=== PATIENT | male | born 1955 | race African-American/Black ===

== ENCOUNTER 2019-01-24 14:43 | Inpatient (IN) | payer MEDICARE, OTHER ==
[2019-01-24] MEDS: SOD CHLORIDE 0.9% 1,000 ML IV (15:16)
[2019-01-24 15:25] LABS: ADD MAN DIFF? NO
[2019-01-24 15:30] LABS: BASOPHILS % 0.1 % (0.0-2.0); EOSINOPHILS % 0.2 % (0.0-7.0); HEMATOCRIT 36.6 % (42.0-52.0); HEMOGLOBIN 12.7 g/dl (14.0-18.0); LYMPHOCYTES # 1.4 10^3/ul (0.8-2.9); LYMPHOCYTES % 9.9 % (15.0-51.0); MEAN CORPUSCULAR HEMOGLOBIN 29.5 pg (29.0-33.0); MEAN CORPUSCULAR HGB CONC 34.7 g/dl (32.0-37.0); MEAN CORPUSCULAR VOLUME 84.9 fl (82.0-101.0); MEAN PLATELET VOLUME 11.5 fl (7.4-10.4); MONOCYTE # 0.7 10^3/ul (0.3-0.9); MONOCYTES % 4.8 % (0.0-11.0); NEUTROPHIL # 12.1 10^3/ul (1.6-7.5); NEUTROPHILS % 84.5 % (39.0-77.0); PLATELET COUNT 225 10^3/UL (140-415); RED BLOOD COUNT 4.31 10^6/ul (4.70-6.10); RED CELL DISTRIBUTION WIDTH 11.3 % (11.5-14.5)
[2019-01-24 15:30] LABS: WHITE BLOOD COUNT 14.3 10^3/ul (4.8-10.8)
[2019-01-24 15:49] LABS: ALANINE AMINOTRANSFERASE 21 IU/L (13-69); ALBUMIN 3.4 g/dl (3.3-4.9); ALBUMIN/GLOBULIN RATIO 0.87; ALKALINE PHOSPHATASE 109 IU/L (42-121); ANION GAP 7 (5-13); ASPARTATE AMINO TRANSFERASE 24 IU/L (15-46); BILIRUBIN,INDIRECT 0.5 mg/dl (0-1.1); BILIRUBIN,TOTAL 0.5 mg/dl (0.2-1.3); BLOOD UREA NITROGEN 30 mg/dl (7-20); CALCIUM 8.8 mg/dl (8.4-10.2); CARBON DIOXIDE 30 mmol/L (21-31); CHLORIDE 102 mmol/L (97-110); CREATININE 1.69 mg/dl (0.61-1.24); Estimated GFR 50 mL/min (>60); GLUCOSE 266 mg/dl (70-220); POTASSIUM 4.4 mmol/L (3.5-5.1); SODIUM 139 mmol/L (135-144); TOTAL PROTEIN 7.3 g/dl (6.1-8.1)
[2019-01-24 16:08] LABS: TROPONIN-I 0.144 ng/ml (0.000-0.120)
[2019-01-24 16:22] LABS: ADD UMIC YES; UR ASCORBIC ACID 40 mg/dL (NEGATIVE); UR BACTERIA FEW /HPF (NONE SEEN); UR BILIRUBIN (Dip) NEGATIVE (NEGATIVE); UR BLOOD (Dip) NEGATIVE (NEGATIVE); UR CLARITY CLEAR (CLEAR); UR COLOR YELLOW (YELLOW); UR GLUCOSE (Dip) 3+ mg/dL (NEGATIVE); UR KETONES (Dip) NEGATIVE (NEGATIVE); UR LEUKOCYTE ESTERASE (Dip) NEGATIVE Leu/ul (NEGATIVE); UR NITRITE (Dip) NEGATIVE (NEGATIVE); UR RBC 9 /HPF (0-5); UR SPECIFIC GRAVITY (Dip) 1.014 (1.003-1.030); UR TOTAL PROTEIN (Dip) 3+ mg/dl (NEGATIVE); UR UROBILINOGEN (Dip) NEGATIVE (NEGATIVE); UR WBC 1 /HPF (0-5)
[2019-01-24] MEDS ORDERED: ACETAMINOPHEN 325 MG TAB PO (17:30)
[2019-01-24] MEDS ORDERED: ONDANSETRON 4 MG INJ IV (17:30)
[2019-01-25 07:17] LABS: HIV 1&2 ANTIBODY NEGATIVE (NEGATIVE)
[2019-01-25 08:29] LABS: TROPONIN-I 0.089 ng/ml (0.000-0.120)
[2019-01-25] MEDS: ASPIRIN 81 MG TAB PO (08:52)
[2019-01-25] MEDS: LEVETIRACETAM 500 MG (PMX) 100 ML IVPB ×2 (08:53→22:25)
[2019-01-25] MEDS: METOPROLOL 50 MG TAB PO (08:53)
[2019-01-26] MEDS: hydrALAzine 20 MG INJ IV (05:41)
[2019-01-26 08:16] LABS: ADD MAN DIFF? NO
[2019-01-26 08:29] LABS: BASOPHIL # 0.1 10^3/ul (0.0-0.1); BASOPHILS % 0.5 % (0.0-2.0); EOSINOPHILS # 0.4 10^3/ul (0.0-0.5); EOSINOPHILS % 3.1 % (0.0-7.0); HEMATOCRIT 34.3 % (42.0-52.0); HEMOGLOBIN 11.6 g/dl (14.0-18.0); LYMPHOCYTES # 2.4 10^3/ul (0.8-2.9); LYMPHOCYTES % 18.2 % (15.0-51.0); MEAN CORPUSCULAR HEMOGLOBIN 29.7 pg (29.0-33.0); MEAN CORPUSCULAR HGB CONC 33.8 g/dl (32.0-37.0); MEAN CORPUSCULAR VOLUME 87.9 fl (82.0-101.0); MONOCYTE # 1.1 10^3/ul (0.3-0.9); MONOCYTES % 8.5 % (0.0-11.0); NEUTROPHIL # 9.2 10^3/ul (1.6-7.5); NEUTROPHILS % 69.3 % (39.0-77.0); PLATELET COUNT 227 10^3/UL (140-415); RED CELL DISTRIBUTION WIDTH 11.6 % (11.5-14.5)
[2019-01-26 08:29] LABS: WHITE BLOOD COUNT 13.4 10^3/ul (4.8-10.8)
[2019-01-26 08:50] LABS: ANION GAP 5 (5-13); BLOOD UREA NITROGEN 32 mg/dl (7-20); CALCIUM 9.1 mg/dl (8.4-10.2); CARBON DIOXIDE 30 mmol/L (21-31); CHLORIDE 109 mmol/L (97-110); CREATININE 1.81 mg/dl (0.61-1.24); Estimated GFR 46 mL/min (>60); GLUCOSE 214 mg/dl (70-220); POTASSIUM 4.4 mmol/L (3.5-5.1); SODIUM 144 mmol/L (135-144)
[2019-01-26] MEDS: OXCARBAZEPINE 300 MG TAB PO ×2 (09:17→20:50)
[2019-01-26] MEDS: LEVETIRACETAM 500 MG (PMX) 100 ML IVPB ×2 (09:17→20:50)
[2019-01-26 09:42] LABS: CHOL/HDL RATIO 6.9 RATIO; HDL CHOLESTEROL 33 mg/dl (30-78); LDL CHOLESTEROL,CALCULATED 179 mg/dl; MAGNESIUM 2.1 mg/dl (1.7-2.5); TRIGLYCERIDES 84 mg/dl (0-149)
[2019-01-26 09:42] LABS: CHOLESTEROL 229 mg/dl (100-200); PHOSPHORUS 3.4 mg/dl (2.5-4.9)
[2019-01-26] MEDS: ASPIRIN (EC) 81 MG TAB PO (14:31)
[2019-01-26] MEDS: NIFEdipine (XL) 30 MG TAB PO (14:31)
[2019-01-26] MEDS: SOD CHLORIDE 0.9% 1,000 ML IV (22:59)
[2019-01-27] MEDS: OXCARBAZEPINE 300 MG TAB PO ×2 (09:46→21:55)
[2019-01-27] MEDS: LEVETIRACETAM 500 MG (PMX) 100 ML IVPB ×2 (09:46→21:55)
[2019-01-27] MEDS: ASPIRIN (EC) 81 MG TAB PO (09:46)
[2019-01-27] MEDS: NIFEdipine (XL) 30 MG TAB PO (09:47)
[2019-01-27] MEDS: SOD CHLORIDE 0.9% 1,000 ML IV ×2 (12:48→17:04)
[2019-01-27] MEDS: ATORVASTATIN 40 MG TAB PO (21:55)
[2019-01-27] MEDS: TIMOLOL 0.25% 5 ML OPH BOTH EYES (21:57)
[2019-01-28] MEDS: hydrALAzine 20 MG INJ IV (04:39)
[2019-01-28 06:44] LABS: ADD MAN DIFF? NO
[2019-01-28 06:46] LABS: BASOPHIL # 0.1 10^3/ul (0.0-0.1); BASOPHILS % 0.5 % (0.0-2.0); EOSINOPHILS # 0.3 10^3/ul (0.0-0.5); EOSINOPHILS % 2.4 % (0.0-7.0); HEMATOCRIT 31.8 % (42.0-52.0); HEMOGLOBIN 10.4 g/dl (14.0-18.0); LYMPHOCYTES # 1.9 10^3/ul (0.8-2.9); LYMPHOCYTES % 14.3 % (15.0-51.0); MEAN CORPUSCULAR HGB CONC 32.7 g/dl (32.0-37.0); MEAN CORPUSCULAR VOLUME 88.6 fl (82.0-101.0); MEAN PLATELET VOLUME 11.7 fl (7.4-10.4); MONOCYTE # 1.2 10^3/ul (0.3-0.9); MONOCYTES % 8.8 % (0.0-11.0); NEUTROPHIL # 9.8 10^3/ul (1.6-7.5); NEUTROPHILS % 73.7 % (39.0-77.0); PLATELET COUNT 205 10^3/UL (140-415); RED BLOOD COUNT 3.59 10^6/ul (4.70-6.10); RED CELL DISTRIBUTION WIDTH 11.3 % (11.5-14.5)
[2019-01-28 06:46] LABS: WHITE BLOOD COUNT 13.3 10^3/ul (4.8-10.8)
[2019-01-28 07:05] LABS: ANION GAP 3 (5-13); BLOOD UREA NITROGEN 25 mg/dl (7-20); CALCIUM 8.6 mg/dl (8.4-10.2); CARBON DIOXIDE 29 mmol/L (21-31); CHLORIDE 111 mmol/L (97-110); CREATININE 1.66 mg/dl (0.61-1.24); Estimated GFR 51 mL/min (>60); GLUCOSE 222 mg/dl (70-220); MAGNESIUM 1.8 mg/dl (1.7-2.5); POTASSIUM 4.3 mmol/L (3.5-5.1); SODIUM 143 mmol/L (135-144)
[2019-01-28 07:21] LABS: TROPONIN-I 0.919 ng/ml (0.000-0.120)
[2019-01-28] MEDS: TIMOLOL 0.25% 5 ML OPH BOTH EYES ×2 (09:08→22:15)
[2019-01-28] MEDS: ASPIRIN (EC) 81 MG TAB PO (09:08)
[2019-01-28] MEDS: LEVETIRACETAM 500 MG (PMX) 100 ML IVPB ×2 (09:08→22:12)
[2019-01-28] MEDS: NIFEdipine (XL) 30 MG TAB PO (09:10)
[2019-01-28] MEDS: OXCARBAZEPINE 300 MG TAB PO ×2 (09:11→22:14)
[2019-01-28] MEDS: ATORVASTATIN 40 MG TAB PO (22:13)
[2019-01-29] MEDS: hydrALAzine 20 MG INJ IV ×2 (05:34→20:30)
[2019-01-29] MEDS: LEVETIRACETAM 500 MG (PMX) 100 ML IVPB ×2 (09:15→20:32)
[2019-01-29] MEDS: TIMOLOL 0.25% 5 ML OPH BOTH EYES ×2 (09:15→20:44)
[2019-01-29] MEDS: ASPIRIN (EC) 81 MG TAB PO (09:16)
[2019-01-29] MEDS: NIFEdipine (XL) 30 MG TAB PO ×2 (09:17→20:27)
[2019-01-29] MEDS: OXCARBAZEPINE 300 MG TAB PO ×2 (09:18→20:40)
[2019-01-29 10:29] LABS: ADD MAN DIFF? NO
[2019-01-29 10:36] LABS: BASOPHILS % 0.3 % (0.0-2.0); EOSINOPHILS # 0.3 10^3/ul (0.0-0.5); EOSINOPHILS % 2.4 % (0.0-7.0); HEMATOCRIT 29.8 % (42.0-52.0); LYMPHOCYTES # 1.7 10^3/ul (0.8-2.9); LYMPHOCYTES % 13.2 % (15.0-51.0); MEAN CORPUSCULAR HEMOGLOBIN 29.5 pg (29.0-33.0); MEAN CORPUSCULAR HGB CONC 33.6 g/dl (32.0-37.0); MEAN CORPUSCULAR VOLUME 87.9 fl (82.0-101.0); MONOCYTES % 7.3 % (0.0-11.0); NEUTROPHIL # 9.9 10^3/ul (1.6-7.5); NEUTROPHILS % 76.4 % (39.0-77.0); PLATELET COUNT 198 10^3/UL (140-415); RED BLOOD COUNT 3.39 10^6/ul (4.70-6.10); RED CELL DISTRIBUTION WIDTH 11.1 % (11.5-14.5)
[2019-01-29 11:05] LABS: ANION GAP 5 (5-13); BLOOD UREA NITROGEN 24 mg/dl (7-20); CALCIUM 8.8 mg/dl (8.4-10.2); CARBON DIOXIDE 31 mmol/L (21-31); CHLORIDE 104 mmol/L (97-110); CREATININE 1.66 mg/dl (0.61-1.24); Estimated GFR 51 mL/min (>60); GLUCOSE 287 mg/dl (70-220); POTASSIUM 4.2 mmol/L (3.5-5.1); SODIUM 140 mmol/L (135-144)
[2019-01-29] MEDS: ATORVASTATIN 40 MG TAB PO (20:32)
== END 2019-01-29 21:17 | DRG 682 ==
LOC: TEL 17:29 → E/R 14:43
PROVIDERS: Internal Medicine
DX: N17.9 Acute kidney failure, unspecified (principal); I21.4 Non-ST elevation (NSTEMI) myocardial infarction; I69.951 Hemiplegia and hemiparesis following unspecified cerebrovascular disease affecting right dominant side; E11.22 Type 2 diabetes mellitus with diabetic chronic kidney disease; I48.91 Unspecified atrial fibrillation; I12.9 Hypertensive chronic kidney disease with stage 1 through stage 4 chronic kidney disease, or unspecified chronic kidney disease; E78.5 Hyperlipidemia, unspecified; G40.909 Epilepsy, unspecified, not intractable, without status epilepticus; N18.3 Chronic kidney disease, stage 3 (moderate); I69.990 Apraxia following unspecified cerebrovascular disease; I25.10 Atherosclerotic heart disease of native coronary artery without angina pectoris; Z79.82 Long term (current) use of aspirin
CPT/HCPCS: 36415; 70450; 70551; 71045; 80048; 80053; 80061; 81001; 82962; 83735; 84100; 84484; 85025; 86703; 92610; 93005; 93306; 96360; 96361; 99285-25